=== PATIENT | female | born 1990 | race Caucasian/White ===

== ENCOUNTER 2018-10-11 14:19 | Inpatient (IN) | payer OTHER ==
[~2018-10-11] VITALS: Ht 160 cm; Wt 94.3 kg
[2018-10-11 14:36] VITALS: BP 129/85; PULSE 106; RESP 20; Ht 160 cm; Wt 94.3 kg
[2018-10-11] MEDS ORDERED: LACTATED RINGER'S 1,000 ML IV SCH (14:43)
[2018-10-11] MEDS ORDERED: METHYLERGONOVINE 0.2 MG INJ IM PRN ×2 (15:00→18:30)
[2018-10-11] MEDS ORDERED: CEFAZOLIN 2 GM/50 ML (PMX) 50 ML IVPB SCH ×2 (15:00→18:30)
[2018-10-11] MEDS ORDERED: CARBOPROST 250 MCG INJ IM PRN ×2 (15:00→18:30)
[2018-10-11] MEDS ORDERED: MISOPROSTOL 200 MCG TAB PR PRN ×2 (15:00→18:30)
[2018-10-11] MEDS ORDERED: OXYTOCIN 30 UNITS/LR 500 ML IV PRN ×2 (15:00→18:30)
[2018-10-11] MEDS ORDERED: OXYTOCIN 30 UNITS/LR 500 ML IV SCH ×2 (15:00→18:22)
--- NOTE | 2018-10-11 16:49 | PREAC ---
Date/Time of Note Date/Time of Note DATE: 10/11/18 TIME: 16:48 Anesthesia Eval and Record Evaluation Time Pre-Procedure Interview DATE: 10/11/18 TIME: 16:48 Age 28 Sex female NPO: 8 hrs Preoperative diagnosis Planned procedure repeat cs with btl Past Medical History Past Medical History: Includes GI: Obesity Surgery & Anesthesia Issues No known issue Meds Anticoagulation: No Beta Jimbo within 24 hr: No Reason Beta Jimbo not given: Pt. not on B-Jimbo Current Medications Lactated Ringer's 1,000 ml @ 125 mls/hr Q8H IV ; Start 10/11/18 at 14:43 Cefazolin Sodium/ Dextrose 50 ml @ 100 mls/hr ONCE IVPB ; Start 10/11/18 at 15:00 Oxytocin/Lactated Ringer's 500 ml @ 125 mls/hr POST IV ; Start 10/11/18 at 15:00 Oxytocin/Lactated Ringer's 500 ml @ 0 mls/hr ONCE PRN IV VAGINAL BLEEDING; Start 10/11/18 at 15:00 Methylergonovine Maleate (Methergine) 0.2 mg ONCE PRN IM VAGINAL BLEEDING; Start 10/11/18 at 15:00 Carboprost Tromethamine (Hemabate) 250 mcg ONCE PRN IM VAGINAL BLEEDING; Start 10/11/18 at 15:00 Misoprostol (Cytotec) 1,000 mcg ONCE PRN SD VAGINAL BLEEDING; Start 10/11/18 at 15:00 Meds reviewed: Yes Allergies Coded Allergies: No Known Allergy (Unverified , 10/11/18) Allergies Reviewed: Yes Labs/Studies Labs Reviewed: Reviewed by anesthesiologist Result Diagram: 10/11/18 1515 Laboratory Tests 10/11/18 15:15 Blood Bank Test 10/11/18 15:15 Antibody Screen NEGATIVE Blood Type B POSITIVE Rh Immune Globulin Candidate NO test: Positive Pre-procedure Exam Last vitals Vital Signs Date Temp Pulse Resp B/P (MAP) Pulse Ox O2 O2 Flow FiO2 Time Delivery Rate 10/11/18 97.9 106 20 129/85 Room Air 14:36 (100) Airway: Adequate mouth opening, Adequate thyromental dist Mallampati: Mallampati II Teeth: Normal Lung: Normal Heart: Normal ASA Physical Status ASA physical status: 2 Emergency: None Planned Anesthetic Neuraxial: Spinal Planned Pain Management Sub-arachniod narcotics Pre-operative Attestations Prior to commencing anesthesia and surgery, the patient was re-evaluated, there was verification of: *The patient's identity *The results of appropriate recent lab work and preoperative vital signs *The above evaluation not changing prior to induction *Anesthetic plan, risk benefits, alternative and complications discussed with patient/family; questions answered; patient/family understands, accepts and wishes to proceed. KRUPA BARNES Oct 11, 2018 16:49
[2018-10-11] MEDS ORDERED: ONDANSETRON 4 MG INJ IV PRN ×2 (17:00)
[2018-10-11] MEDS ORDERED: FENTAnyl 50 MCG/ML VIAL IV PRN ×3 (17:00)
[2018-10-11] MEDS ORDERED: ALBUTEROL 0.083% (NEB) 2.5 MG/3 ML AMP HHN PRN (17:00)
[2018-10-11] MEDS ORDERED: HYDROmorphONE 1 MG/5 ML IV SYRINGE IV PRN ×3 (17:00)
[2018-10-11] MEDS ORDERED: NALOXONE (0.4 MG/ML) INJ IV PRN (17:00)
[2018-10-11] MEDS ORDERED: KETOROLAC 30 MG INJ IV PRN ×2 (17:00)
[2018-10-11] MEDS ORDERED: HYDROmorphONE 0.5 MG/0.5 ML SYG IV PRN ×2 (17:00)
[2018-10-11] MEDS ORDERED: DIPHENHYDRAMINE 50 MG INJ IV PRN ×2 (17:00)
[2018-10-11] MEDS ORDERED: morphine SULFATE/PF (10 MG/10 ML) INJ ONE (17:15)
--- NOTE | 2018-10-11 17:18 | PREOPHP ---
DATE OF ADMISSION: 10/11/2018 HISTORY OF PRESENT ILLNESS: Ms. Ling Ponce is a 28-year-old 3, para 2, EDC 10/17/2018, intrauterine at 39 weeks' gestational age, presented to triage today for elective repeat c esarean delivery with bilateral tubal sterilization. She is currently having regular contractions. Denies any vaginal bleeding or discharge. Her care took place with Dr. Goodson approximately 30 weeks gestational age. PAST MEDICAL HISTORY: None. MEDICATIONS: vitamins. PAST SURGICAL HISTORY: Times 2 previous C-sections, cholecystectomy. OBSTETRIC HISTORY: Times 2 previous C-sections. GYNECOLOGIC HISTORY: 11, regular 3 to 4 days. Denies any sexually transmitted diseases. Sexually a ctive with 1 partner. SOCIAL HISTORY: Denies any smoking, drugs or alcohol. FAMILY HISTORY: None. REVIEW OF SYSTEMS: All within normal except history of present illness. PHYSICAL EXAMINATION: HEENT: Within normal. LUNGS: CTA bilateral. CARDIOVASCULAR: S1, S2. Regular rate and rhythm. ABDOMEN: Gravid, nontender. Negative CVA bilateral. EXTREMITIES: Negative. No calf tenderness. PELVIC: Vaginal exam: 1 cm dilated, 50% effaced, -3 station. heart tracing category 1. [place] meter: Regular contractions. ASSESSMENT: A 28-year-old 3, para 2, intrauterine at 39 weeks gestational age in labor, previous x2, desires elective repeat delivery with bilateral tubal ligation . PLAN: Consent for repeat delivery with bilateral tubal ligation. Risks, benefits and alter natives were explained. All questions were answered. Dictated By: FRANCI ANTHONY/KARIN Conf#: [id number] DID#: [id number]
[2018-10-11] MEDS ORDERED: PHENYLephrine (100 MCG/ML) 5ML SYG ONE ×5 (17:23→18:14)
[2018-10-11] MEDS ORDERED: FENTAnyl 50 MCG/ML VIAL ONE (17:41)
--- NOTE | 2018-10-11 18:22 | OPPN ---
Date/Time of Note Date/Time of Note DATE: 10/11/18 TIME: 18:20 Operative Report Planned Procedure Procedure date Oct 11, 2018 Procedure(s) repeat low transverse CD with bilateral tubal ligation carolina method Performed by see signature line Sales Enablement Analyst: MART FERNANDEZ MD 2nd Sales Enablement Analyst none Pre-procedure diagnosis 28-year-old 3, para 2, intrauterine at 39 weeks gestational age in labor, previous x2, desires elective repeat delivery with bilateral tubal ligation [id number] Anesthesia Type: [id number] spinal Post-Procedure Post-procedure diagnosis same Findings a viable female 9/9 weight 3,680 grams, normal uterus tubes and ovaries Estimated Blood Loss: 500 - 600 mls Specimen(s) portion of left and right fallopian tube Grafts/Implant(s) none Complication(s) none FRANCI LOWE MD Oct 11, 2018 18:22
[2018-10-11] MEDS ORDERED: NACL 0.9% 3 ML SYG IV SCH (18:30)
[2018-10-11] MEDS ORDERED: OXYCODONE/ACETAMINOPHEN (5/325) TAB PO PRN (18:30)
[2018-10-11] MEDS ORDERED: LANOLIN HPA 1 PKT TOP PRN (18:30)
--- NOTE | 2018-10-11 18:38 | PAC ---
Date/Time of Note Date/Time of Note DATE: 10/11/18 TIME: 18:37 Post-Anesthesia Notes Post-Anesthesia Note Last documented vital signs Vital Signs Date Temp Pulse Resp B/P (MAP) Pulse Ox O2 O2 Flow FiO2 Time Delivery Rate 10/11/18 97.9 106 20 129/85 Room Air 14:36 (100) Activity: WNL Respiratory function: WNL Cardiovascular function: WNL Mental status: Baseline Pain reasonably controlled: Yes Hydration appropriate: Yes Nausea/Vomiting absent: Yes KRUPA BARNES Oct 11, 2018 18:38
[2018-10-11 21:00] VITALS: BP 134/75; PULSE 98; RESP 19
[2018-10-11] MEDS: SENNA/DOCUSATE NA (8.6MG/50MG) TAB PO SCH (21:00)
[2018-10-12 01:00] VITALS: BP 106/67; PULSE 80; RESP 20
[2018-10-12] MEDS: CEFAZOLIN 2 GM/50 ML (PMX) 50 ML IVPB SCH ×3 (03:03→17:29)
[2018-10-12 03:35] VITALS: BP 107/65; PULSE 82; RESP 20
[2018-10-12 08:00] VITALS: BP 105/66; PULSE 85; RESP 19
[2018-10-12] MEDS: LACTATED RINGER'S 1,000 ML IV SCH ×2 (10:01→18:00)
[2018-10-12] MEDS: SENNA/DOCUSATE NA (8.6MG/50MG) TAB PO SCH ×2 (10:05→20:12)
[2018-10-12 12:00] VITALS: BP 105/61; PULSE 97; RESP 20
--- NOTE | 2018-10-12 13:43 | OPR ---
DATE OF OPERATION: 10/11/2018 PREOPERATIVE DIAGNOSES: 1. Intrauterine at 39 weeks gestational age. 2. Previous . 3. Desires elective repeat delivery with bilateral tubal ligation. 4. Declined vaginal after . POSTOPERATIVE DIAGNOSES: 1. Intrauterine at 39 weeks gestational age. 2. Previous . 3. Desires elective repeat delivery with bilateral tubal ligation. 4. Declined vaginal after . OPERATION PERFORMED: Repeat low transverse delivery with bilateral tubal ligation, Tamiko method. SURGEON: Lauro Nunes MD LAND DEGRADATION ANALYST: Chyna Hinson MD ANESTHESIA: Spinal. COMPLICATIONS: None. ESTIMATED BLOOD LOSS: 500 mL. FINDINGS: A viable female, 9 and 9 respectively at 1 and 5 minutes, weight 3680 grams. Normal uterus, tubes and ovaries. Pathology portion of the right and left fallopian tube. DESCRIPTION OF PROCEDURE: After explaining the risks, benefits and alternatives to the patient, cons ent signed in chart, the patient was taken to the operating room where spinal anesthesia was found to be adequate. She was then prepared and draped in normal sterile fashion in dorsal supine position w ith a leftward tilt. A Pfannenstiel skin incision was then made with a scalpel and carried to the un derlying fascia. The fascia was incised in midline and incision was extended laterally with Espinosa sci ssors. The superior aspect of the fascial incision was grasped with curved clamps, elevated and unde rlying rectus muscles were dissected off bluntly. Attention was then turned to the inferior aspect o f incision, which in similar fashion was grasped, tented up with curved clamps and the rectus muscles dissected off bluntly. The rectus muscles were in midline, peritoneum identified, grasped with pickup and sharply with Metzenbaum scissors. The peritoneal incision was extended superiorly w ith good visualization of the bladder. The bladder blade was then inserted and the vesicouterine per itoneum identified, grasped with pickups, entered sharply with Metzenbaum scissors. This incision wa s extended laterally and a bladder flap created digitally. The bladder blade was then reinserted and the lower segment incised in transverse fashion with the scalpel. The uterine incision was extended laterally. The bladder blade was then removed and the infant's head delivered atraumatically. The nose and mouth were suctioned and cord clamped and cut. The was handed off to awaiting [facility]. The placenta was then removed. The uterus was exteriorized and cleared of all clots and kenan ris. The uterine incision was repaired with 1-0 chromic in a running locked fashion. A second layer of same suture was used for imbrication and obtained excellent hemostasis. At this point, the left fallopian tube was identified and a Conner clamp was used to grasp the left fallopian tube 4 cm from the cornual region. A 3 cm segment of tube was ligated with a free tie of plain gut and excised x2. Good hemostasis was noted. Similarly, the right fallopian tube was excised. Good hemostasis was n oted. The uterus was returned to the abdomen. The gutters were cleared of all clots. The peritoneu m and rectus abdominis muscles were reapproximated with 2-0 Vicryl in interrupted fashion. The fasci a was reapproximated with 0 Vicryl in a running fashion. The subcutaneous tissue was reapproximated with 2-0 plain gut in a running fashion. The skin was closed with absorbable [place]. The patient t olerated procedure well. Sponge, lap and needle counts were correct. The patient was taken to [facility] in stable condition. Dictated By: LAURO ANTHONY/KARIN Conf#: [id number] DID#: [id number]
[2018-10-12 16:00] VITALS: BP 111/65; PULSE 89; RESP 19
[2018-10-12] MEDS: OXYCODONE/ACETAMINOPHEN (5/325) TAB PO PRN (19:49)
[2018-10-12 20:15] VITALS: BP 138/82; PULSE 98; RESP 18
--- NOTE | 2018-10-12 22:22 | QN ---
Documentation Comment progress note pod 1 patient seen and evaluated no complaints vs stable afebrile ab c/d/i no distention extremity no edema no calf tenderness a/ sp cd with btl pod 1 stable afebrile p/ encourage ambulation iron supplement FRANCI LOWE MD Oct 12, 2018 22:22
[2018-10-12] MEDS: IBUPROFEN 600 MG TAB PO SCH (23:32)
[2018-10-13 04:27] VITALS: BP 126/73; PULSE 92; RESP 18
[2018-10-13] MEDS: IBUPROFEN 600 MG TAB PO SCH ×4 (05:32→23:35)
[2018-10-13] MEDS: FERROUS SULFATE (EC) 325 MG TAB PO SCH ×2 (08:28→20:23)
[2018-10-13] MEDS: SENNA/DOCUSATE NA (8.6MG/50MG) TAB PO SCH ×2 (08:28→20:23)
[2018-10-13 08:45] VITALS: BP 110/57
--- NOTE | 2018-10-13 11:36 | PD.PPDC ---
PIECE MARKER SMALL ARMS Discharge Instruction Condition Temdf5Ce Patient Condition: Iwhzv1i Good Diet Mulhi2Rp Diet: Vwwnn8x Resume Regular Diet Activity/Restrictions [id number] Activity: Hbaec0l Normal Activity May Shower Vhucm4Cd Restrictions: Eqwzx4v No Exercising No Lifting No Driving No Sexual Activity Nothing in the Vagina No [place] No Tampons, douche Wound/Drain Care Instructions [id number] Wound/Drain Care Instructions: Fpnib9a Wash with soap and water Keep clean and dry Follow-up Follow-up with Physician: 2, Week/Weeks Return to clinic for Sdfpi5Ob ENTRY LEVEL ACCOUNT MANAGER Instructions: Rnjyo2u Fever greater than 101 Chills Worsening abdominal pain Excessive Vaginal Bleeding More than 2 pads per hour Unable to tolerate diet Vjcgx8Sz OB Instructions: Gvkrt0x Breast Tenderness Depression Blurried Vision Headache Etzsj0Gj Surgical Instructions: Clrpk6l Incisional Drainage Incisional Redness FRANCI LOWE MD Oct 13, 2018 11:36
--- NOTE | 2018-10-13 11:36 | QN ---
Documentation Comment progress note pod 2 patient seen and evaluated no complaints vs stable afebrile ab c/d/i no distention extremity no edema no calf tenderness a/ sp cd with btl pod 2 stable afebrile p/ encourage ambulation discharge home tomorrow FRANCI LOWE MD Oct 13, 2018 11:36
[2018-10-13] MEDS: OXYCODONE/ACETAMINOPHEN (5/325) TAB PO PRN ×2 (15:16→20:24)
[2018-10-13 16:59] VITALS: BP 119/62; PULSE 87
[2018-10-13 19:45] VITALS: BP 128/88; PULSE 98; RESP 18
--- NOTE | 2018-10-13 22:11 | DS ---
DATE OF ADMISSION: 10/11/2018 DATE OF DISCHARGE: 10/14/2018 PRIMARY DIAGNOSES: Intrauterine at 39 weeks gestational age, previous , desires e lective repeat delivery with bilateral tubal ligation. Declined vaginal after cesarea n procedure. PROCEDURE: Repeat low transverse delivery with bilateral tubal ligation. CONDITION ON DISCHARGE: Stable. ACTIVITY: None per vagina, no heavy lifting x6 weeks. DIET: Regular. MEDICATIONS ON DISCHARGE 1. Motrin. 2. Iron. DISCHARGE SUMMARY: Ms. Ling Ponce underwent a repeat low transverse delivery with lisa ateral tubal ligation on 10/11/2018. She had a viable female, 9 and 9 respectively at 1 and 5 minutes, weight 3680 grams. She had an uneventful postop day 1, 2, and 3. Her incision is clean, dr y, and intact. She is ambulating, tolerating diet, positive flatulence, positive bowel sounds. She will follow up in the clinic in 2 weeks for /postop care. Dictated By: FRANCI LOWE MD ME/NTS Conf#: [id number] DID#: [id number] CC: FRANCI LOWE MD;*EndCC*
[2018-10-14 04:41] VITALS: BP 118/75; PULSE 97; RESP 18
[2018-10-14] MEDS: IBUPROFEN 600 MG TAB PO SCH ×2 (06:12→12:01)
[2018-10-14 08:30] VITALS: BP 120/65; PULSE 80; RESP 18
[2018-10-14] MEDS: SENNA/DOCUSATE NA (8.6MG/50MG) TAB PO SCH (10:05)
[2018-10-14] MEDS: FERROUS SULFATE (EC) 325 MG TAB PO SCH (10:05)
--- NOTE | 2018-10-21 18:46 | CONS ---
Consultation Date/Type/Reason Admit Date/Time Oct 11, 2018 at 14:19 Initial Consult Date 10/12/18 Type of Consult Anesthesiology Reason for Consultation Follow up Date/Time of Note DATE: 10/21/18 TIME: 18:46 24 HR Interval Summary Free Text/Dictation Pt seen and examined at bedside on 10/12/18 POD#1 s/p repeat c/s with BTL. Pt received spinal duramorph for post op pain control. No N/V/CARNEY/Numbness in extremities. KRUPA BARNES Oct 21, 2018 18:46
== END 2018-10-14 14:48 | disposition home or self-care (01) | DRG 785 ==
LOC: L-D 14:19 → PP1 20:57
PROVIDERS: ADMIT Obstetrics & Gynecology; ATTEND Obstetrics & Gynecology
PROC: 10D00Z1 Extraction of Products of Conception, Low, Open Approach (ICD-10-PCS; principal; 2018-10-12)
PROC: 0UB70ZZ Excision of Bilateral Fallopian Tubes, Open Approach (ICD-10-PCS; 2018-10-12)
DX: O34.211 Maternal care for low transverse scar from previous cesarean delivery (principal); Z3A.39 39 weeks gestation of pregnancy; Z37.0 Single live birth; Z30.2 Encounter for sterilization
CPT/HCPCS: 85025; 85610; 85730; 86592; 86850; 86900; 86901; 88302; 99464; J0690; J1200; J1885; J2274; J2370; J2405; J2590; J3010; J7120